=== PATIENT | female | born 1965 | race Caucasian/White ===

== ENCOUNTER 2017-12-24 12:06 | Inpatient (IN) | payer OTHER ==
[~2017-12-24 12:06] MED LIST: EPHEDrine SULFATE 50 MG/5 ML SYG; SUGAMMADEX SODIUM 200 MG/2 ML VIAL IV
[2017-12-24] MEDS ORDERED: VANCOMYCIN 1 GM (PMX) 250 ML (14:39)
[2017-12-24] MEDS ORDERED: MIDAZOLAM 1 MG/ML 2 ML INJ (14:57)
[2017-12-24] MEDS ORDERED: DEXAMETHASONE 4 MG/ML 1 ML INJ (15:24)
[2017-12-24] MEDS ORDERED: ROCURONIUM 50 MG INJ ×2 (15:24→15:49)
[2017-12-24] MEDS ORDERED: ONDANSETRON 4 MG INJ (15:24)
[2017-12-24] MEDS ORDERED: FAMOTIDINE 20 MG INJ (15:24)
[2017-12-24] MEDS ORDERED: SUCCINYLCHOLINE CHLORIDE 100 MG/5 ML SYG IV (15:24)
[2017-12-24] MEDS ORDERED: PROPOFOL 40 ML (15:24)
[2017-12-24] MEDS ORDERED: LIDOCAINE 2% (SDV) 5 ML INJ (15:24)
[2017-12-24] MEDS: LIDOCAINE 1%/EPI 30 ML INJ (16:12)
[2017-12-24] MEDS: BUPIVACAINE 0.5% (SDV) 30 ML INJ (16:12)
[2017-12-24] MEDS: POLYMYXIN/BACITRACIN 1L IRRIG (16:12)
[2017-12-24] MEDS: GELATIN SIZE 100 SPONGE (16:12)
[2017-12-24] MEDS: THROMBIN 5000 UNIT VIAL (16:13)
[2017-12-24] MEDS ORDERED: HYDROmorphONE 2 MG/ML SYG (19:29)
[2017-12-24] MEDS ORDERED: HYDROmorphONE 1 MG/5 ML IV SYRINGE IV (19:30)
[2017-12-24] MEDS ORDERED: DIPHENHYDRAMINE 50 MG INJ IV (19:30)
[2017-12-24] MEDS ORDERED: hydrALAzine 20 MG INJ IV (19:30)
[2017-12-24] MEDS ORDERED: PROCHLORPERAZINE 10 MG INJ IV (19:30)
[2017-12-24] MEDS ORDERED: LABETALOL HCL 20MG INJ IV (19:30)
[2017-12-24] MEDS ORDERED: FENTAnyl 50 MCG/ML VIAL IV ×2 (19:30)
[2017-12-24] MEDS ORDERED: ACETAMINOPHEN 1000MG/100ML IV 100 ML (21:52)
[2017-12-24] MEDS: HYDROmorphONE 1 MG/5 ML IV SYRINGE IV ×2 (21:55→22:03)
[2017-12-24] MEDS ORDERED: MIDAZOLAM 1 MG/ML 2 ML INJ IV (22:00)
[2017-12-24] MEDS ORDERED: BISACODYL 10 MG SUPP PR (22:00)
[2017-12-24] MEDS ORDERED: NALOXONE (0.4 MG/ML) INJ IV (22:00)
[2017-12-24] MEDS ORDERED: ONDANSETRON 4 MG INJ IV (22:00)
[2017-12-24] MEDS: ONDANSETRON 4 MG INJ IV (22:04)
[2017-12-24] MEDS: MEPERIDINE 25 MG INJ IV (22:04)
[2017-12-24] MEDS: FENTAnyl 50 MCG/ML VIAL IV ×2 (22:04→22:13)
[2017-12-24] MEDS: ACETAMINOPHEN 1000MG/100ML IV 100 ML IVPB (22:05)
[2017-12-24] MEDS: VANCOMYCIN 1 GM (PMX) 250 ML IVPB (23:33)
[2017-12-24] MEDS: DOCUSATE SODIUM 100 MG CAP PO (23:41)
[2017-12-24] MEDS: 1/2 NS + KCL 20 MEQ 1,000 ML IV (23:42)
[2017-12-25] MEDS: HYDROCODONE/APAP (10/325) TAB PO ×6 (00:29→23:28)
[2017-12-25] MEDS: CYCLOBENZAPRINE 10 MG TAB PO ×3 (01:51→20:33)
[2017-12-25] MEDS: HYDROmorphONE 0.5 MG/0.5 ML SYG IV ×5 (04:05→22:01)
[2017-12-25] MEDS: PANTOPRAZOLE 40 MG INJ IV (05:30)
[2017-12-25] MEDS: traMADol 50 MG TAB PO (07:22)
[2017-12-25] MEDS: 1/2 NS + KCL 20 MEQ 1,000 ML IV ×2 (07:37→11:03)
[2017-12-25] MEDS: oxyCODONE 5 MG TAB PO ×3 (08:20→19:22)
[2017-12-25] MEDS: DULOXETINE 30 MG CAP DR PO (08:20)
[2017-12-25] MEDS: DOCUSATE SODIUM 100 MG CAP PO ×2 (08:21→20:33)
[2017-12-25] MEDS: VANCOMYCIN 1 GM (PMX) 250 ML IVPB (09:28)
[2017-12-25] MEDS: GABAPENTIN 300 MG CAP PO ×2 (11:46→20:33)
[2017-12-26] MEDS: oxyCODONE 5 MG TAB PO ×4 (01:35→17:11)
[2017-12-26] MEDS: 1/2 NS + KCL 20 MEQ 1,000 ML IV (03:37)
[2017-12-26] MEDS: HYDROmorphONE 0.5 MG/0.5 ML SYG IV (04:08)
[2017-12-26] MEDS: HYDROCODONE/APAP (10/325) TAB PO ×3 (05:36→15:02)
[2017-12-26] MEDS: PANTOPRAZOLE 40 MG INJ IV (05:36)
[2017-12-26] MEDS: DULOXETINE 30 MG CAP DR PO (09:28)
[2017-12-26] MEDS: DOCUSATE SODIUM 100 MG CAP PO (09:29)
[2017-12-26] MEDS: GABAPENTIN 300 MG CAP PO (09:29)
== END 2017-12-26 17:55 | disposition home health service (06) | DRG 455 ==
LOC: REC 12:06 → MS1 23:00
PROC: 0SG03AJ Fusion of Lumbar Vertebral Joint with Interbody Fusion Device, Posterior Approach, Anterior Column, Percutaneous Approach (ICD-10-PCS; principal; 2017-12-24 14:00)
PROC: 0SG0371 Fusion of Lumbar Vertebral Joint with Autologous Tissue Substitute, Posterior Approach, Posterior Column, Percutaneous Approach (ICD-10-PCS; 2017-12-24 14:00)
PROC: 0SG33AJ Fusion of Lumbosacral Joint with Interbody Fusion Device, Posterior Approach, Anterior Column, Percutaneous Approach (ICD-10-PCS; 2017-12-24 14:00)
PROC: 0SG3371 Fusion of Lumbosacral Joint with Autologous Tissue Substitute, Posterior Approach, Posterior Column, Percutaneous Approach (ICD-10-PCS; 2017-12-24 14:00)
DX: M51.36 Other intervertebral disc degeneration, lumbar region (principal); M51.37 Other intervertebral disc degeneration, lumbosacral region; M48.061 Spinal stenosis, lumbar region without neurogenic claudication; M48.07 Spinal stenosis, lumbosacral region; M79.7 Fibromyalgia; G89.29 Other chronic pain
CPT/HCPCS: 72114; 86850; 86900; 86901; 97116; 97161; 97530; C9359

== ENCOUNTER 2017-12-28 17:02 | Emergency (ER) | payer OTHER ==
[2017-12-28] MEDS: LIDOCAINE 2% JELLY 5 ML TOP ×2 (18:23→18:49)
[2017-12-28] MEDS: HYDROmorphONE 0.5 MG/0.5 ML SYG IM (18:54)
== END 2017-12-28 19:03 | disposition home or self-care (01) ==
LOC: FTE 17:02
DX: M96.830 Postprocedural hemorrhage of a musculoskeletal structure following a musculoskeletal system procedure (principal)
CPT/HCPCS: 96372; 99284-25